=== PATIENT | male | born 1985 | race American Indian/Alaskan Native ===

== ENCOUNTER 2021-08-20 00:44 | Emergency (ER) | payer SELFPAY ==
[2021-08-20] MEDS ORDERED: NALOXONE 0.4 MG/1 ML INJ IV ONE ×3 (00:57→06:05)
[2021-08-20 01:23] LABS: Basophils % (Auto) 0.4 % (0.0-1.8); Eosinophils # (Auto) 0.2 K/mm3 (0.0-0.4); Eosinophils % (Auto) 1.9 % (0.0-4.3); Hemoglobin 16.2 gm/dl (11.8-15.2); Lymphocytes # (Auto) 2.4 K/mm3 (1.2-5.4); Lymphocytes % (Auto) 23.6 % (13.4-35.0); Mean Corpuscular HGB Conc 33 % (32-34); Mean Corpuscular Volume 85 fl (84-94); Monocytes # (Auto) 0.6 K/mm3 (0.0-0.8); Monocytes % (Auto) 6.2 % (0.0-7.3); Red Blood Count 5.78 M/mm3 (3.65-5.03); Red Cell Distribution Width 14.6 % (13.2-15.2)
[2021-08-20 01:24] LABS: Platelet Count 224 K/mm3 (140-440)
[2021-08-20 01:34] LABS: BUN/Creatinine Ratio 7; Blood Urea Nitrogen 9 mg/dL (9-20); Calcium 8.9 mg/dL (8.4-10.2); Hemolysis Index 29
[2021-08-20] MEDS ORDERED: SODIUM CHLORIDE 0.9% 1000 ML 1,000 ML IV ONE (01:42)
--- NOTE | 2021-08-20 01:45 | XRay Report ---
CHEST 1 VIEW 08/20/2021 12:29 AM INDICATION / CLINICAL INFORMATION: weakness. COMPARISON: None available. FINDINGS: SUPPORT DEVICES: None. HEART / MEDIASTINUM: No significant abnormality. LUNGS / PLEURA: There are generalized left airspace opacities with vague opacities also seen along th e right upper lung. No significant pleural effusion. No pneumothorax. ADDITIONAL FINDINGS: No significant additional findings. IMPRESSION: 1. Findings concerning for bilateral pneumonia. Please correlate with the clinical findings. Signer Name: Salvatore Jacobs MD Signed: 08/20/2021 1:40 AM Workstation Name: [id number]
--- NOTE | 2021-08-20 05:28 | Emergency Department Report ---
ED General Adult HPI - General Chief complaint: Overdose Stated complaint: OVERDOSE Time Seen by Provider: 08/20/21 00:56 Source: police, EMS Mode of arrival: Stretcher Limitations: Altered Mental Status - History of Present Illness Initial comments: Patient presents with overdose patient had pinpoint pupils and he was brought in by EMS he was given some Narcan. Patient states that "I think I was doing cocaine but it was heroin. History is limited due to patient's condition - Related Data Previous Rx's Medication Instructions Recorded Last Taken Type Clindamycin [Clindamycin CAP] 300 mg PO Q6H #30 cap 08/20/21 Unknown Rx Allergies Allergy/AdvReac Type Severity Reaction Status Date / Time Sulfa (Sulfonamide Allergy Hives Verified 08/20/21 00:57 Antibiotics) ED Review of Systems ROS: Stated complaint: OVERDOSE Other details as noted in HPI Constitutional: denies: chills, fever Eyes: denies: eye pain, eye discharge, vision change ENT: denies: ear pain, throat pain Respiratory: denies: cough, shortness of breath, wheezing Cardiovascular: denies: chest pain, palpitations Endocrine: no symptoms reported Gastrointestinal: denies: abdominal pain, nausea, diarrhea Genitourinary: denies: urgency, dysuria Musculoskeletal: denies: back pain, joint swelling, arthralgia Skin: denies: rash, lesions Neurological: denies: headache, weakness, paresthesias Psychiatric: denies: anxiety, depression Hematological/Lymphatic: denies: easy bleeding, easy bruising ED Past Medical Hx - Past Medical History Previous Medical History?: Yes Additional medical history: neuropathy, - Surgical History Past Surgical History?: No - Social History Smoking Status: Current Every Day Smoker Substance Use Type: Alcohol, Cocaine, Heroin - Medications Home Medications: Home Medications Medication Instructions Recorded Confirmed Last Taken Type Clindamycin [Clindamycin CAP] 300 mg PO Q6H #30 cap 08/20/21 Unknown Rx ED Physical Exam - General Limitations: Altered Mental Status General appearance: alert, in no apparent distress - Head Head exam: Present: atraumatic, normocephalic - Eye Eye exam: Present: normal appearance - ENT ENT exam: Present: mucous membranes moist - Neck Neck exam: Present: normal inspection - Respiratory Respiratory exam: Present: normal lung sounds bilaterally. Absent: respiratory distress - Cardiovascular Cardiovascular Exam: Present: regular rate, normal rhythm. Absent: systolic murmur, diastolic murmur, rubs, gallop - GI/Abdominal GI/Abdominal exam: Present: soft, normal bowel sounds - Rectal Rectal exam: Present: deferred - Extremities Exam Extremities exam: Present: normal inspection - Back Exam Back exam: Present: normal inspection - Neurological Exam Neurological exam: Present: alert, oriented X3 - Psychiatric Psychiatric exam: Present: normal affect, normal mood - Skin Skin exam: Present: warm, dry, intact, normal color. Absent: rash ED Course Vital Signs 08/20/21 08/20/21 08/20/21 00:52 00:56 01:01 Temperature 97.5 F L Pulse Rate 116 H 109 H 109 H Respiratory 12 17 20 Rate Blood Pressure 130/79 132/80 Blood Pressure [Left] O2 Sat by Pulse 92 93 92 Oximetry 08/20/21 08/20/21 08/20/21 01:15 01:31 01:45 Temperature Pulse Rate 113 H 112 H 112 H Respiratory 17 16 15 Rate Blood Pressure 117/62 116/68 116/68 Blood Pressure [Left] O2 Sat by Pulse 95 91 94 Oximetry 08/20/21 08/20/21 08/20/21 02:01 02:15 02:31 Temperature Pulse Rate 113 H 114 H 109 H Respiratory 13 14 15 Rate Blood Pressure 120/70 117/72 115/71 Blood Pressure [Left] O2 Sat by Pulse 95 95 97 Oximetry 08/20/21 08/20/21 08/20/21 02:45 03:01 03:15 Temperature Pulse Rate 104 H 102 H 99 H Respiratory 16 16 15 Rate Blood Pressure 109/72 123/75 122/71 Blood Pressure [Left] O2 Sat by Pulse 77 L 81 L 97 Oximetry 08/20/21 08/20/21 08/20/21 03:31 03:45 04:01 Temperature Pulse Rate 101 H 91 H 103 H Respiratory 14 13 16 Rate Blood Pressure 119/72 124/71 123/82 Blood Pressure [Left] O2 Sat by Pulse 96 79 L 89 Oximetry 08/20/21 08/20/21 08/20/21 04:15 04:31 04:45 Temperature Pulse Rate 100 H 91 H 98 H Respiratory 13 14 13 Rate Blood Pressure 112/74 114/71 119/87 Blood Pressure [Left] O2 Sat by Pulse 87 92 95 Oximetry 08/20/21 08/20/2122 05:01 05:15 05:31 Temperature Pulse Rate 99 H 92 H 86 Respiratory 19 16 18 Rate Blood Pressure 120/80 119/74 130/79 Blood Pressure [Left] O2 Sat by Pulse 94 86 87 Oximetry 08/20/21 08/20/21 08/20/21 05:45 05:57 05:59 Temperature 97.9 F Pulse Rate 98 H 98 H Respiratory 14 19 22 Rate Blood Pressure 100/61 Blood Pressure 106/60 [Left] O2 Sat by Pulse 83 L 93 91 Oximetry ED Medical Decision Making - Lab Data Result diagrams: 08/20/21 01:05 08/20/21 01:05 Lab Results 08/20/21 08/20/21 Range/Units 01:05 01:05 WBC 10.2 (4.5-11.0) K/mm3 RBC 5.78 H (3.65-5.03) M/mm3 Hgb 16.2 H (11.8-15.2) gm/dl Hct 49.0 H (35.5-45.6) % MCV 85 (84-94) fl MCH 28 (28-32) pg MCHC 33 (32-34) % RDW 14.6 (13.2-15.2) % Plt Count 224 (140-440) K/mm3 Lymph % (Auto) 23.6 (13.4-35.0) % [place] % (Auto) 6.2 (0.0-7.3) % Eos % (Auto) 1.9 (0.0-4.3) % Baso % (Auto) 0.4 (0.0-1.8) % Lymph # (Auto) 2.4 (1.2-5.4) K/mm3 [place] # (Auto) 0.6 (0.0-0.8) K/mm3 Eos # (Auto) 0.2 (0.0-0.4) K/mm3 Baso # (Auto) 0.0 (0.0-0.1) K/mm3 Seg Neutrophils % 67.9 (40.0-70.0) % Seg Neutrophils # 6.9 (1.8-7.7) K/mm3 Sodium 140 (137-145) mmol/L Potassium 3.8 (3.6-5.0) mmol/L Chloride 100.9 (98-107) mmol/L Carbon Dioxide 22 (22-30) mmol/L Anion Gap 21 mmol/L BUN 9 (9-20) mg/dL Creatinine 1.3 (0.8-1.3) mg/dL Estimated GFR > 60 ml/min BUN/Creatinine Ratio 7 % Glucose 275 H (75-100) mg/dL Calcium 8.9 (8.4-10.2) mg/dL - Radiology Data Radiology results: report reviewed, image reviewed Patient has bilateral pneumonia - Medical Decision Making Chief medical diagnosis: Opiate overdose Differential medical diagnosis pneumonia, aspiration pneumonia I will get chest x-ray IV Narcan IV fluids and will reevaluate patient Critical care attestation.: If time is entered above; I have spent that time in minutes in the direct care of this critically ill patient, excluding procedure time. ED Disposition Clinical Impression: Opiate addiction Qualifiers: Substance use status: uncomplicated Qualified Code(s): F11.20 - Opioid de pendence, uncomplicated Pneumonia Qualifiers: Pneumonia type: aspiration pneumonia Aspiration pneumonia type: unspecified Laterality: bilateral Lung location: unspecified part of lung Qualified Code(s): J69.0 - Pneumonitis due to inhalation of food and vomit Disposition: 01 HOME / SELF CARE / HOMELESS Is pt being admited?: No Does the pt Need Aspirin: No Condition: Stable Instructions: Bacterial Pneumonia (ED) Prescriptions: Clindamycin [Clindamycin CAP] 300 mg PO Q6H #30 cap Referrals: AYESHA ARECHIGA MD [Primary Care Provider] - 3-5 Days
[2021-08-20 06:00] VITALS: BP 106/60
--- NOTE | 2021-08-23 13:12 | Electrocardiograph Report ---
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
== END 2021-08-20 06:54 | disposition home or self-care (01) ==
LOC: ED 00:44
DX: F11.229 Opioid dependence with intoxication, unspecified (principal); J18.9 Pneumonia, unspecified organism; F17.200 Nicotine dependence, unspecified, uncomplicated; F10.20 Alcohol dependence, uncomplicated; Z88.2 Allergy status to sulfonamides
CPT/HCPCS: 36415; 71045; 80048; 85025; 93005; 96361; 96374; 96376; 99284; J2310; J7030; J7502